=== PATIENT | female | born 1990 ===

== ENCOUNTER 2017-10-26 13:20 | Emergency (ER) | payer MEDICAID ==
[2017-10-26 13:29] VITALS: BP 138/83; PULSE 95; RESP 20; TEMP 97.9; O2SAT 100
--- NOTE | 2017-10-26 13:32 | ED PDOC ---
HPI: CCC, URI, Sore Throat Time Seen by Provider: 10/26/17 13:31 Chief Complaint (Nursing): ENT Problem Chief Complaint (Provider): ear pain, sore throat History Per: Patient Additional Complaint(s): 27-year-old female with no past medical history presents to emergency department with left ear pain for 2 weeks. Patient also has mild sore throat that started yesterday. No fever or chills. Patient denies acute hearing loss. PMD: none Past Medical History Reviewed: Historical Data, Nursing Documentation, Vital Signs Vital Signs: Last Vital Signs Temp 97.9 F 10/26/17 13:25 Pulse 95 H 10/26/17 13:25 Resp 20 10/26/17 13:25 BP 138/83 10/26/17 13:25 Pulse Ox 100 10/26/17 13:32 - Medical History PMH: No Chronic Diseases - Surgical History Surgical History: No Surg Hx - Family History Family History: States: No Known Family Hx - Living Arrangements Living Arrangements: With Family - Social History Current smoker - smoking cessation education provided: No Alcohol: None Drugs: Denies - Home Medications Home Medications: Ambulatory Orders Medication Instructions Recorded Azithromycin [Zithromax] 250 mg PO DAILY #6 tab 10/26/17 - Allergies Allergies/Adverse Reactions: Allergies Allergy/AdvReac Type Severity Reaction Status Date / Time Penicillins Allergy RASH Verified 10/26/17 13:25 Review of Systems ROS Statement: Except As Marked, All Systems Reviewed And Found Negative Constitutional: Negative for: Fever ENT: Positive for: Ear Pain (left ear pain for 2 weeks), Throat Pain Respiratory: Negative for: Cough Gastrointestinal: Negative for: Nausea, Vomiting Neurological: Negative for: Headache, Dizziness Physical Exam - Reviewed Nursing Documentation Reviewed: Yes Vital Signs Reviewed: Yes - Physical Exam Appears: Positive for: Well Skin: Negative for: Rash Eye Exam: Positive for: Normal appearance ENT: Positive for: Pharyngeal Erythema, Other (Right ear within normal limits, left ear demonstrates bulging and erythematous tympanic membrane with scattered landmarks, no perforation or rupture, canal is slightly erythematous with no edema or exudate). Negative for: Nasal Congestion, Tonsillar Exudate, Tonsillar Swelling Cardiovascular/Chest: Positive for: Regular Rate, Rhythm Respiratory: Positive for: Normal Breath Sounds Neurologic/Psych: Positive for: Alert, Oriented - ECG O2 Sat by Pulse Oximetry: 100 Pulse Ox Interpretation: Normal Medical Decision Making Medical Decision Making: Impression: Otitis media Rx zithromax, OTC NSAID's prn pain. Patient was referred to clinic for follow up. Disposition - Clinical Impression Clinical Impression: Otitis media - Patient ED Disposition Is Patient to be Admitted: No Counseled Patient/Family Regarding: Diagnosis, Need For Followup, Rx Given - Disposition Referrals: [facility] [Outside] Disposition: Routine/Home Disposition Time: 13:57 Condition: STABLE Additional Instructions: Take prescription meds as directed. [id number] Tylenol or Advil for pain as needed. Follow-up with clinic in 2-3 days. Prescriptions: Azithromycin [Zithromax] 250 mg PO DAILY #6 tab Instructions: Ear Infections (Otitis Media) (DC) Forms: [employer] (Occitan) Print Language: BURKINAN
== END 2017-10-26 14:21 | disposition home or self-care (01) ==
LOC: H.ER 13:20
DX: H66.92 Otitis media, unspecified, left ear (principal); J02.9 Acute pharyngitis, unspecified; Z88.0 Allergy status to penicillin